=== PATIENT | female | born 1990 | race Caucasian/White ===

== ENCOUNTER 2023-01-31 14:24 | Emergency (ER) | payer OTHER, SELFPAY ==
[2023-01-31] VITALS (24 sets, daily range): BP systolic 132–170; BP diastolic 66–89; PULSE 77–116; RESP 12–27; TEMP 36.7; O2SAT 96–100
--- NOTE | ~2023-01-31 | XR_ITS ---
XR chest 2V DATE: 01/31/2023 14:44 INDICATION: Palpitations, dizziness TECHNIQUE: PA and lateral views COMPARISON: None FINDINGS: Surgical clips are noted in the lower cervical area. Normal heart size. No hilar or mediastinal enlargement. No pulmonary infiltrate or consolidation, ple ural effusion or pulmonary vascular congestion or pneumothorax. Included skeletal structures are unre markable. IMPRESSION: No active cardiopulmonary disease Reviewed, dictated and finalized at [facility].
--- NOTE | ~2023-01-31 | CT_ITS ---
EXAMINATION: CTA chest PE protocol DATE: 01/31/2023 18:53 INDICATION: Tachycardia. Left-sided chest pressure. Elevated d-dimer. TECHNIQUE: Computed tomography angiography (CTA) of the chest was performed with 100 mL Omnipaque-350 intravenous contrast timed to evaluate the pulmonary arteries. Coronal maximum intensity projection 3D-reconstructions were created by the technologist. Automated exposure control and iterative reconst ruction technique were employed. Exam dose: 843.59 mGy-cm total exam DLP. COMPARISON: 01/31/2023 PA and lateral chest FINDINGS: There is moderate opacification of the pulmonary arteries. No pulmonary embolism is detect ed. No hilar or mediastinal mass lesion or lymphadenopathy Normal heart size. No pericardial or pleural effusion. No thoracic aortic aneurysm or dissection. 1. Lungs are clear of infiltrate or consolidation. No discrete Status post cholecystectomy. Normal adrenal glands. No suspicious osteolytic or osteoblastic lesions. The IMPRESSION: No evidence of pulmonary embolism Reviewed, dictated and finalized at [facility]. Reviewed, dictated and finalized at [facility].
--- NOTE | 2023-01-31 14:25 | ECG_ITS ---
Measurements Intervals [place] Rate: 95 P: 48 AL: 172 QRS: 33 QRSD: 85 T: 44 QT: 375 QTc: 472 Interpretive Statements SINUS RHYTHM WITH SINUS ARRHYTHMIA BORDERLINE ST-T WAVE ABNORMALITY- ANTERIOR LEADS BASELINE ARTIFACT- I, III, AVR, AVL, AVF BORDERLINE ECG NO PREVIOUS ECG AVAILABLE FOR COMPARISON Electronically Signed On 01-31-2023 15:58:39 CDT by Rajeev Moya D.O.
[2023-01-31 14:45] LABS: Basophils Percent Auto 0.5 % (0.2-1.2); Eosinophils Absolute Auto 0.1 K/mm3 (0-0.3); Eosinophils Percent Auto 1.2 % (0-4.4); Hemoglobin 13.7 g/dL (12.0-15.0); Immature Granulocyte Absolute 0.03 K/mm3 (0.00-0.031); Immature Granulocyte Percent A 0.5 % (0-0.5); Lymphocytes Absolute Auto 2.24 K/mm3 (0.9-3.2); Lymphocytes Percent Auto 36.8 % (18.3-44.2); Mean Corpuscular HGB Conc 33.4 g/dl (32-36); Mean Corpuscular Hemoglobin 28.5 pg (26-34); Mean Corpuscular Volume 85.2 fl (80-100); Mean Platelet Volume 10.9 fl (7.4-10.4); Monocytes Absolute Auto 0.4 K/mm3 (0.1-0.6); Monocytes Percent Auto 6.6 % (2.6-8.5); Neutrophils Absolute Auto 3.3 K/mm3 (1.3-6.7); Neutrophils Percent Auto 54.4 % (45.5-73.1); Platelet Count Result 234 k/mm3 (150-375); Red Blood Count 4.81 M/mm3 (4.2-5.4); Red Cell Distribution Width 13.5 % (11.5-14.5); White Blood Count 6.1 K/mm3 (4.5-10.0)
[2023-01-31 14:54] LABS: Alanine Aminotransferase 21 U/L (6-35); Albumin Level 4.7 g/dL (3.5-5.1); Alkaline Phosphatase 88 U/L (38-126); Anion Gap 11 mmol/L (8-16); Aspartate Amino Transferase 25 U/L (14-36); Bilirubin,Total 0.5 mg/dL (0.2-1.3); Blood Urea Nitrogen 12 mg/dL (7-17); Calcium 8.4 mg/dL (8.4-10.2); Carbon Dioxide 21 mmol/L (22-30); Chloride 109 mmol/L (98-107); Estimated CRCL calculation 141 ml/min; Estimated Glomerular Filt Rate > 60; Glucose 138 mg/dL (65-110); Lipase 82 U/L (23-300); Potassium 3.3 mmol/L (3.4-5.0); Prothrombin Time 12.5 Seconds (11.1-14.7); Sodium 141 mmol/L (137-145)
[2023-01-31 14:55] LABS: Partial Thromboplastin Time 34.7 SECONDS (22.3-36.8)
[2023-01-31 15:11] LABS: Troponin I < 0.012 ng/mL (0.000-0.034)
--- NOTE | 2023-01-31 17:53 | ED.ARRPALP ---
HPI - Arrhythmia/Palpitations General Chief Complaint: Arrhythmia/Palpitations Stated Complaint: palpatations Time Seen by Provider: 01/31/23 17:09 History of Present Illness HPI narrative: This is a 32-year-old female with past medical history of thyroid nodule status post thyroidectomy, recently started on Lexapro with the last tablet taken 2 days ago, who presents to the emergency department complaining of palpitations. The patient states approximately 45 minutes prior to arrival, she was seated when she noticed palpitations associated with chest pressure. She measured her heart rate which was in the 150s. She attempted vasovagal maneuvers without improvement and called EMS. She did not lose consciousness, felt tremulous after the episode but denies chest pain. She has not had an episode like this before. She was also started on Protonix and Lexapro 3 days ago, but denies other change in her medications. Related Data Allergies Allergy/AdvReac Type Severity Reaction Status Date / Time No Known Allergies Allergy Mild Verified 01/31/23 14:26 Review of Systems Review of Systems: CONSTITUTIONAL: Denies fever, chills, or sweats. CARDIOVASCULAR: Palpitations, chest pressure?improving denies edema. RESPIRATORY: Denies cough or dyspnea. GASTROINTESTINAL: Denies abdominal pain, nausea, vomiting, or diarrhea. GENITOURINARY: Denies dysuria or hematuria. SKIN: Denies rash or itching. MUSCULOSKELETAL: Denies back pain, joint pain, or myalgia. NEUROLOGIC: Denies headache, numbness, dizziness, or weakness. PSYCHIATRIC: Denies anxiety or depression. PMFSH Past Medical History Medical History (Updated 02/01/23 @ 00:14 by Izaiah Bradley) GERD (gastroesophageal reflux disease) Post-surgical hypothyroidism Thyroid nodule Surgical History Surgical History (Updated 01/31/23 @ 17:57 by Reji Headley MD) History of total thyroidectomy Family History Family History Father Hypertension Grandparent Family history of pancreatic cancer Diabetes mellitus Other Family history of malignant neoplasm of brain Social History Social History (Updated 01/31/23 @ 17:57 by Reji Headley MD) Smoking status: Never smoker Alcohol intake: never Substance use: current Substance use type: marijuana Exam Narrative: GENERAL: Well-developed, well-nourished, and in no acute distress. HEAD: Normocephalic, atraumatic. EYES: PERRLA and EOMI. ENT: Nares clear, no rhinorrhea or epistaxis. Mucous membranes moist. Oropharynx without tonsillar hypertrophy exudate or other lesions. CHEST: Clear to auscultation. No respiratory distress. No wheezes rales or rhonchi HEART: Tachycardic with regular. No murmur heard. Normal peripheral pulses. ABDOMEN: Soft, nontender, nondistended, normal active bowel sounds. EXTREMITIES: Normal range of motion. No edema. SKIN: Warm, dry, no rash. NEURO: No focal deficits. Alert and oriented x3. PSYCH: Normal mood and affect. Course Course Emergency Course: 19:30 - Chemistries demonstrate mild hypokalemia at 3.3 with a magnesium of 2.4, but are otherwise unremarkable. CBC unremarkable. test negative. CT PE study negative for PE or other acute cardiopulmonary process. Troponins negative x2. EKG not concerning for arrhythmia. Discussed Valsalva maneuver for recurrent symptoms. Patient I advised patient to follow-up with her primary care doctor this week. Discussed return emergency precautions including signs/symptoms of arrhythmia, ACS and respiratory distress. The patient voiced understanding and is comfortable with the plan. All questions answered to her satisfaction. Vital Signs Vital signs: Vital Signs Temperature 98.0 F 01/31/23 14:27 Pulse Rate 109 H 01/31/23 14:27 Respiratory Rate 20 01/31/23 14:27 Blood Pressure 148/87 H 01/31/23 14:27 Pulse Oximetry 100 01/31/23 14:27 Oxygen Delivery Room Air 03
[2023-01-31] MEDS: LACTATED RINGERS 2,000 ML 999 ML IV CONT (17:55)
[2023-01-31 18:02] LABS: Troponin I < 0.012 ng/mL (0.000-0.034)
[2023-01-31 18:04] LABS: Magnesium 2.4 mg/dL (1.6-2.3)
[2023-01-31 18:07] LABS: D Dimer 0.53 ug/mL (<0.48)
== END 2023-01-31 21:05 | disposition home or self-care (01) ==
PROVIDERS: Emergency Provider Preventive Medicine Aerospace Medicine
DX: R00.2 Palpitations (principal); R00.0 Tachycardia, unspecified; R07.89 Other chest pain; E89.0 Postprocedural hypothyroidism; R94.31 Abnormal electrocardiogram [ECG] [EKG]
CPT/HCPCS: 36415; 71046; 71275; 80053; 81025; 83690; 83735; 84443; 84484; 85025; 85380; 85610; 85730; 93005; 96360; 96361; 99284; J7120; Q9967

== ENCOUNTER → 2023-02-05 10:56 | Outpatient (CLI) | payer OTHER, SELFPAY ==
--- NOTE | ~2023-02-05 | XR_ITS ---
Cervical Spine: AP, lateral, open-mouth views Clinical History: Pain Findings: The normal lordotic curve is maintained. The vertebral bodies and posterior elements appea r intact. There is minimal degenerative disc change at C5-C6 and C6-C7. Pre-vertebral soft tissues ar e unremarkable. Impression: Minimal degenerative disc change at C5-C6 and C6-C7. Reviewed, dictated and finalized at [facility]. Impression: Minimal degenerative disc change at C5-C6 and C6-C7.
== END ==
PROVIDERS: PCP Family Medicine; Visit Provider Chiropractor
DX: M54.2 Cervicalgia (principal); M54.6 Pain in thoracic spine; M99.02 Segmental and somatic dysfunction of thoracic region; M99.01 Segmental and somatic dysfunction of cervical region; M99.03 Segmental and somatic dysfunction of lumbar region; M99.08 Segmental and somatic dysfunction of rib cage
CPT/HCPCS: 72050